=== PATIENT | male | born 1960 | race Caucasian/White ===

== ENCOUNTER → 2017-06-29 | Outpatient (CLI) | payer SELFPAY ==
--- NOTE | 2017-06-29 10:02 | US ---
EXAMINATION TYPE: US liver DATE OF EXAM: 06/29/2017 COMPARISON: 09/22/2013 CLINICAL HISTORY: R93.2 Prior abnormal ultrasound. Previous abnormal US EXAM MEASUREMENTS: Liver Length: 20.3 cm Gallbladder Wall: 0.2 cm CBD: 0.5 cm Right Kidney: 10.5 x 5.1 x 5.5 cm Pancreas: wnl, tail obscured by overlying bowel gas Liver: Enlarged, difficult to penetrate, heterogeneous with probable fatty sparing near gallbladder Gallbladder: wnl Evidence for sonographic Livingston's sign: No CBD: wnl Right Kidney: wnl IMPRESSION: 1. Visualized right upper quadrant ultrasound is unremarkable. 2. There is limitation due to bowel gas. 3. Hepatomegaly with moderate fatty infiltration
== END | disposition home or self-care (01) ==
LOC: RADUSWWP 07:23
PROVIDERS: ATTEND Internal Medicine Hematology & Oncology
DX: R16.0 Hepatomegaly, not elsewhere classified (principal)
CPT/HCPCS: 76705